=== PATIENT | female | born 1950 | race Caucasian/White ===

== ENCOUNTER 2017-09-12 13:31 | Inpatient (IN) | payer MEDICARE, OTHER ==
[2017-09-12] MEDS: morphine 2 MG INJ IV (14:53)
[2017-09-12] MEDS: SOD CHLORIDE 0.9% 1,000 ML IV (14:53)
[2017-09-12] MEDS: FAMOTIDINE 20 MG INJ IV (14:54)
[2017-09-12] MEDS: ONDANSETRON 4 MG INJ IV (14:54)
[2017-09-12 15:14] LABS: INR 1.04; PROTIME 13.7 Sec (11.9-14.9); PT RATIO 1.1
[2017-09-12 15:15] LABS: WHITE BLOOD COUNT 4.7 10^3/ul (4.8-10.8)
[2017-09-12 15:15] LABS: ABNORMAL IP MESSAGE 1; HEMATOCRIT 11.3 % (37.0-47.0); MEAN CORPUSCULAR HEMOGLOBIN 29.6 pg (29.0-33.0); MEAN CORPUSCULAR HGB CONC 30.1 g/dl (32.0-37.0); MEAN CORPUSCULAR VOLUME 98.3 fl (82.0-101.0); MEAN PLATELET VOLUME 9.9 fl (7.4-10.4); NUCLEATED RED BLOOD CELLS% 0.9 /100WBC (0.0-0.0); PARTIAL THROMBOPLASTIN TIME 27.7 Sec (25.0-35.0); PLATELET COUNT 209 10^3/UL (140-415); RED BLOOD COUNT 1.15 10^6/ul (4.20-5.40)
[2017-09-12 15:18] LABS: ADD MAN DIFF? YES; ALANINE AMINOTRANSFERASE 33 IU/L (13-69); ALBUMIN 2.7 g/dl (3.3-4.9); ALBUMIN/GLOBULIN RATIO 1.03; ALKALINE PHOSPHATASE 29 IU/L (42-121); ANION GAP 11 (8-16); ASPARTATE AMINO TRANSFERASE 16 IU/L (15-46); BILIRUBIN,INDIRECT 0.7 mg/dl (0-1.1); BILIRUBIN,TOTAL 0.7 mg/dl (0.2-1.3); BLOOD UREA NITROGEN 30 mg/dl (7-20); CALCIUM 8.4 mg/dl (8.4-10.2); CARBON DIOXIDE 28 mmol/L (21-31); CHLORIDE 93 mmol/L (97-110); CREATININE 1.26 mg/dl (0.44-1.00); GLUCOSE 116 mg/dl (70-220); HEMOGLOBIN 3.4 g/dl (12.0-16.0); POSITIVE DIFF @See below; POTASSIUM 3.4 mmol/L (3.5-5.1); SODIUM 129 mmol/L (135-144); TOTAL PROTEIN 5.3 g/dl (6.1-8.1)
[2017-09-12 15:36] LABS: TROPONIN-I < 0.012 ng/ml (0.00-0.12)
[2017-09-12 15:46] LABS: ANISOCYTOSIS 2+ (0-0); EOSINOPHILS % (M) 4 % (0-7); HYPOCHROMASIA 1+ (0-0); LYMPHOCYTES #M 1.1 10^3/ul (0.8-2.9); LYMPHOCYTES % (M) 24 % (15-51); MICROCYTOSIS 1+ (0-0); MONOCYTE #M 0.2 10^3/ul (0.3-0.9); MONOCYTES % (M) 5 % (0-11); PLATELET ESTIMATE NORMAL; POLYCHROMASIA 3+ (0-0); SEGMENTED NEUTROPHILS (M) % 67 % (39-77); SMUDGE%M 4 % (0-0)
[2017-09-12] MEDS ORDERED: ONDANSETRON 4 MG INJ IV (16:00)
[2017-09-12] MEDS ORDERED: ACETAMINOPHEN 325 MG TAB PO (16:00)
[2017-09-12 16:58] LABS: ADD UMIC YES; UR ASCORBIC ACID NEGATIVE (NEGATIVE); UR BILIRUBIN (Dip) NEGATIVE (NEGATIVE); UR BLOOD (Dip) 1+ mg/dL (NEGATIVE); UR CLARITY CLEAR (CLEAR); UR COLOR YELLOW (YELLOW); UR GLUCOSE (Dip) NEGATIVE (NEGATIVE); UR KETONES (Dip) NEGATIVE (NEGATIVE); UR LEUKOCYTE ESTERASE (Dip) NEGATIVE Leu/ul (NEGATIVE); UR NITRITE (Dip) NEGATIVE (NEGATIVE); UR RBC 0 /HPF (0-5); UR SPECIFIC GRAVITY (Dip) 1.012 (1.003-1.030); UR TOTAL PROTEIN (Dip) NEGATIVE (NEGATIVE); UR UROBILINOGEN (Dip) NEGATIVE (NEGATIVE); UR WBC 1 /HPF (0-5)
[2017-09-12] MEDS ORDERED: NACL 0.9% 3 ML SYG IV (17:00)
[2017-09-12] MEDS: PANTOPRAZOLE IV 80 MG in SOD CHLORIDE 0.9% 100 ML IVPB (18:41)
[2017-09-12] MEDS: D5W-0.45 NACL + KCL 20 MEQ 1,000 ML IV (18:41)
[2017-09-12] MEDS: PANTOPRAZOLE IV 80 MG in SOD CHLORIDE 0.9% 100 ML IV (19:00)
[2017-09-12] MEDS: D5-NS + KCL 20 MEQ 1,000 ML IV (21:00)
[2017-09-12] MEDS: LACTULOSE 30ML CUP PO ×2 (21:00→22:53)
[2017-09-13] MEDS: PANTOPRAZOLE IV 80 MG in SOD CHLORIDE 0.9% 100 ML IV ×3 (03:00→13:09)
[2017-09-13] MEDS: LACTULOSE 30ML CUP PO ×2 (03:37)
[2017-09-13 05:36] LABS: ADD MAN DIFF? NO
[2017-09-13 06:09] LABS: ABNORMAL IP MESSAGE 1; BASOPHILS % 0.8 % (0.0-2.0); EOSINOPHILS % 0.3 % (0.0-7.0); HEMATOCRIT 18.4 % (37.0-47.0); LYMPHOCYTES # 0.9 10^3/ul (0.8-2.9); LYMPHOCYTES % 23.3 % (15.0-51.0); MEAN CORPUSCULAR HEMOGLOBIN 29.2 pg (29.0-33.0); MEAN CORPUSCULAR HGB CONC 32.1 g/dl (32.0-37.0); MEAN CORPUSCULAR VOLUME 91.1 fl (82.0-101.0); MEAN PLATELET VOLUME 9.8 fl (7.4-10.4); MONOCYTE # 0.4 10^3/ul (0.3-0.9); MONOCYTES % 10.6 % (0.0-11.0); NEUTROPHIL # 2.5 10^3/ul (1.6-7.5); NUCLEATED RED BLOOD CELLS # 0.1 10^3/ul (0.0-0.0); NUCLEATED RED BLOOD CELLS% 1.5 /100WBC (0.0-0.0); PLATELET COUNT 192 10^3/UL (140-415); RED BLOOD COUNT 2.02 10^6/ul (4.20-5.40)
[2017-09-13 06:26] LABS: ALBUMIN/GLOBULIN RATIO 0.92; ANION GAP 10 (8-16); POSITIVE DIFF @See below
[2017-09-13 06:29] LABS: HEMOGLOBIN 5.9 g/dl (12.0-16.0)
[2017-09-13 06:38] LABS: ALANINE AMINOTRANSFERASE 29 IU/L (13-69); ALBUMIN 2.3 g/dl (3.3-4.9); ALKALINE PHOSPHATASE 25 IU/L (42-121); ASPARTATE AMINO TRANSFERASE 15 IU/L (15-46); BLOOD UREA NITROGEN 25 mg/dl (7-20); CARBON DIOXIDE 27 mmol/L (21-31); CHLORIDE 103 mmol/L (97-110); CREATININE 1.12 mg/dl (0.44-1.00); GLUCOSE 127 mg/dl (70-220); MAGNESIUM 1.9 mg/dl (1.7-2.5); PHOSPHORUS 4.2 mg/dl (2.5-4.9); POTASSIUM 3.5 mmol/L (3.5-5.1); SODIUM 136 mmol/L (135-144); TOTAL PROTEIN 4.8 g/dl (6.1-8.1)
[2017-09-13] MEDS ORDERED: LIDOCAINE 2% (SDV) 5 ML INJ (07:00)
[2017-09-13] MEDS ORDERED: PROPOFOL 200 MG INJ (07:00)
[2017-09-13] MEDS: D5-NS + KCL 20 MEQ 1,000 ML IV ×3 (08:00→18:30)
[2017-09-13 09:19] LABS: ANISOCYTOSIS 1+ (0-0); BASOPHILS % (M) 1 % (0-2); EOSINOPHILS % (M) 9 % (0-7); ERYTHROBLAST% (NRBC) (M) 2 % (0-0); LYMPHOCYTES % (M) 25 % (15-51); METAMYELOCYTES %M 2 % (0-0); MICROCYTOSIS 1+ (0-0); MONOCYTE #M 0.2 10^3/ul (0.3-0.9); MONOCYTES % (M) 5 % (0-11); MYELOCYTES % (M) 1 % (0-0); PLATELET ESTIMATE NORMAL; POLYCHROMASIA 3+ (0-0); SEGMENTED NEUTROPHILS (M) % 57 % (39-77); SMUDGE%M 2 % (0-0)
[2017-09-13] MEDS: morphine 2 MG INJ IV ×2 (10:08→15:36)
[2017-09-13 11:41] LABS: HEMATOCRIT 18.9 % (37.0-47.0)
[2017-09-13 11:51] LABS: HEMOGLOBIN 6.1 g/dl (12.0-16.0)
[2017-09-13] MEDS: FUROSEMIDE 20 MG INJ IV (12:59)
[2017-09-13 15:04] LABS: IMMEDIATE SPIN CROSSMATCH 1 3
[2017-09-13 15:19] LABS: PATH REVIEW CH
[2017-09-13] MEDS ORDERED: PROPOFOL 60 ML (19:01)
[2017-09-13 19:11] LABS: HEMATOCRIT 22.8 % (37.0-47.0); HEMOGLOBIN 7.2 g/dl (12.0-16.0)
[2017-09-14] MEDS: morphine 2 MG INJ IV ×2 (00:19→19:47)
[2017-09-14 05:44] LABS: ADD MAN DIFF? NO
[2017-09-14 06:06] LABS: WHITE BLOOD COUNT 3.3 10^3/ul (4.8-10.8)
[2017-09-14 06:06] LABS: BASOPHILS % 0.3 % (0.0-2.0); EOSINOPHILS # 0.1 10^3/ul (0.0-0.5); EOSINOPHILS % 1.5 % (0.0-7.0); HEMATOCRIT 21.5 % (37.0-47.0); HEMOGLOBIN 7.1 g/dl (12.0-16.0); LYMPHOCYTES # 0.8 10^3/ul (0.8-2.9); LYMPHOCYTES % 24.3 % (15.0-51.0); MEAN CORPUSCULAR HEMOGLOBIN 29.1 pg (29.0-33.0); MEAN CORPUSCULAR VOLUME 88.1 fl (82.0-101.0); MEAN PLATELET VOLUME 9.6 fl (7.4-10.4); MONOCYTE # 0.3 10^3/ul (0.3-0.9); NEUTROPHIL # 2.1 10^3/ul (1.6-7.5); NEUTROPHILS % 62.7 % (39.0-77.0); PLATELET COUNT 171 10^3/UL (140-415); RED BLOOD COUNT 2.44 10^6/ul (4.20-5.40); RED CELL DISTRIBUTION WIDTH 17.2 % (11.5-14.5)
[2017-09-14 06:39] LABS: ANION GAP 10 (8-16); BLOOD UREA NITROGEN 17 mg/dl (7-20); CALCIUM 7.9 mg/dl (8.4-10.2); CARBON DIOXIDE 26 mmol/L (21-31); CHLORIDE 104 mmol/L (97-110); CREATININE 0.99 mg/dl (0.44-1.00); GLUCOSE 114 mg/dl (70-220); MAGNESIUM 1.6 mg/dl (1.7-2.5); PHOSPHORUS 3.9 mg/dl (2.5-4.9); POTASSIUM 3.3 mmol/L (3.5-5.1); SODIUM 137 mmol/L (135-144)
[2017-09-14] MEDS: MAGNESIUM SULFATE 2 GM/50 ML 50 ML IVPB (08:58)
[2017-09-14] MEDS: BALSAM PERU/CASTOR OIL 60 GM TUBE TOP (09:01)
[2017-09-14] MEDS: POTASSIUM CHLORIDE 30 MEQ in SOD CHLORIDE 0.9% 150 ML IVPB (09:52)
[2017-09-14] MEDS: PANTOPRAZOLE IV 80 MG in SOD CHLORIDE 0.9% 100 ML IV ×2 (13:30→19:00)
[2017-09-14 15:33] LABS: IMMEDIATE SPIN CROSSMATCH 1
[2017-09-14 19:08] LABS: HEMATOCRIT 27.3 % (37.0-47.0)
[2017-09-14] MEDS: D5-NS + KCL 20 MEQ 1,000 ML IV ×2 (22:30)
[2017-09-15 00:55] LABS: HEMATOCRIT 27.4 % (37.0-47.0); HEMOGLOBIN 8.8 g/dl (12.0-16.0)
[2017-09-15] MEDS: PANTOPRAZOLE IV 80 MG in SOD CHLORIDE 0.9% 100 ML IV ×2 (04:33→17:17)
[2017-09-15 06:57] LABS: ADD MAN DIFF? NO
[2017-09-15 07:06] LABS: BASOPHILS % 0.4 % (0.0-2.0); EOSINOPHILS % 0.4 % (0.0-7.0); LYMPHOCYTES # 0.6 10^3/ul (0.8-2.9); LYMPHOCYTES % 21.2 % (15.0-51.0); MEAN CORPUSCULAR HEMOGLOBIN 29.2 pg (29.0-33.0); MEAN CORPUSCULAR VOLUME 91.2 fl (82.0-101.0); MEAN PLATELET VOLUME 9.1 fl (7.4-10.4); MONOCYTE # 0.4 10^3/ul (0.3-0.9); MONOCYTES % 12.4 % (0.0-11.0); NEUTROPHIL # 1.8 10^3/ul (1.6-7.5); NEUTROPHILS % 64.5 % (39.0-77.0); PLATELET COUNT 170 10^3/UL (140-415); RED BLOOD COUNT 2.74 10^6/ul (4.20-5.40); RED CELL DISTRIBUTION WIDTH 17.2 % (11.5-14.5)
[2017-09-15 07:06] LABS: WHITE BLOOD COUNT 2.8 10^3/ul (4.8-10.8)
[2017-09-15 07:22] LABS: ANION GAP 8 (8-16); BLOOD UREA NITROGEN 12 mg/dl (7-20); CALCIUM 7.7 mg/dl (8.4-10.2); CARBON DIOXIDE 25 mmol/L (21-31); CHLORIDE 108 mmol/L (97-110); CREATININE 0.84 mg/dl (0.44-1.00); GLUCOSE 109 mg/dl (70-220); MAGNESIUM 1.9 mg/dl (1.7-2.5); PHOSPHORUS 3.7 mg/dl (2.5-4.9); POTASSIUM 3.8 mmol/L (3.5-5.1); SODIUM 137 mmol/L (135-144)
[2017-09-15] MEDS: D5-NS + KCL 20 MEQ 1,000 ML IV ×2 (08:26→16:49)
[2017-09-15] MEDS: BALSAM PERU/CASTOR OIL 60 GM TUBE TOP (09:24)
[2017-09-15 12:47] LABS: HEMATOCRIT 26.7 % (37.0-47.0); HEMOGLOBIN 8.7 g/dl (12.0-16.0)
[2017-09-15 18:41] LABS: HEMATOCRIT 25.4 % (37.0-47.0); HEMOGLOBIN 8.3 g/dl (12.0-16.0)
[2017-09-15] MEDS: morphine 2 MG INJ IV (21:14)
[2017-09-16] MEDS: PANTOPRAZOLE IV 80 MG in SOD CHLORIDE 0.9% 100 ML IV ×4 (01:00→20:57)
[2017-09-16] MEDS: morphine 2 MG INJ IV ×4 (06:41→20:56)
[2017-09-16 08:45] LABS: ANION GAP 8 (8-16); BLOOD UREA NITROGEN 13 mg/dl (7-20); CALCIUM 8.2 mg/dl (8.4-10.2); CARBON DIOXIDE 24 mmol/L (21-31); CHLORIDE 110 mmol/L (97-110); CREATININE 0.84 mg/dl (0.44-1.00); GLUCOSE 103 mg/dl (70-220); MAGNESIUM 1.8 mg/dl (1.7-2.5); PHOSPHORUS 4.2 mg/dl (2.5-4.9); SODIUM 138 mmol/L (135-144)
[2017-09-16] MEDS: BALSAM PERU/CASTOR OIL 60 GM TUBE TOP ×2 (09:00→16:35)
[2017-09-16] MEDS: ONDANSETRON 4 MG INJ IV (20:56)
[2017-09-17] MEDS: D5-NS + KCL 20 MEQ 1,000 ML IV (01:30)
[2017-09-17 07:54] LABS: ADD MAN DIFF? NO
[2017-09-17 08:02] LABS: BASOPHILS % 0.5 % (0.0-2.0); EOSINOPHILS # 0.1 10^3/ul (0.0-0.5); EOSINOPHILS % 2.8 % (0.0-7.0); HEMATOCRIT 27.3 % (37.0-47.0); HEMOGLOBIN 8.7 g/dl (12.0-16.0); LYMPHOCYTES # 1.2 10^3/ul (0.8-2.9); LYMPHOCYTES % 30.4 % (15.0-51.0); MEAN CORPUSCULAR HEMOGLOBIN 29.2 pg (29.0-33.0); MEAN CORPUSCULAR HGB CONC 31.9 g/dl (32.0-37.0); MEAN CORPUSCULAR VOLUME 91.6 fl (82.0-101.0); MEAN PLATELET VOLUME 9.5 fl (7.4-10.4); MONOCYTE # 0.5 10^3/ul (0.3-0.9); MONOCYTES % 12.4 % (0.0-11.0); NEUTROPHIL # 2.1 10^3/ul (1.6-7.5); NEUTROPHILS % 53.1 % (39.0-77.0); PLATELET COUNT 182 10^3/UL (140-415); RED BLOOD COUNT 2.98 10^6/ul (4.20-5.40); RED CELL DISTRIBUTION WIDTH 16.3 % (11.5-14.5)
[2017-09-17 08:02] LABS: WHITE BLOOD COUNT 3.9 10^3/ul (4.8-10.8)
[2017-09-17 08:30] LABS: ANION GAP 10 (8-16); BLOOD UREA NITROGEN 15 mg/dl (7-20); CALCIUM 8.2 mg/dl (8.4-10.2); CARBON DIOXIDE 22 mmol/L (21-31); CHLORIDE 109 mmol/L (97-110); CREATININE 0.82 mg/dl (0.44-1.00); GLUCOSE 95 mg/dl (70-220); SODIUM 137 mmol/L (135-144)
[2017-09-17] MEDS: PANTOPRAZOLE IV 80 MG in SOD CHLORIDE 0.9% 100 ML IV ×2 (08:52→14:28)
[2017-09-17] MEDS: BALSAM PERU/CASTOR OIL 60 GM TUBE TOP (09:10)
[2017-09-17] MEDS: morphine 2 MG INJ IV ×4 (09:11→21:46)
[2017-09-17] MEDS: PANTOPRAZOLE (EC) 40 MG TAB PO (17:41)
[2017-09-18] MEDS: ONDANSETRON 4 MG INJ IV ×2 (00:40→20:52)
[2017-09-18] MEDS: POLYETHYLENE GLYCOL 17 GM PACKET PO ×2 (00:41→14:29)
[2017-09-18] MEDS: D5-NS + KCL 20 MEQ 1,000 ML IV (01:30)
[2017-09-18] MEDS: morphine 2 MG INJ IV ×5 (03:05→19:30)
[2017-09-18 05:34] LABS: ADD MAN DIFF? NO
[2017-09-18 05:43] LABS: WHITE BLOOD COUNT 3.6 10^3/ul (4.8-10.8)
[2017-09-18 05:43] LABS: BASOPHILS % 0.6 % (0.0-2.0); HEMATOCRIT 28.5 % (37.0-47.0); HEMOGLOBIN 9.2 g/dl (12.0-16.0); LYMPHOCYTES # 0.9 10^3/ul (0.8-2.9); LYMPHOCYTES % 26.2 % (15.0-51.0); MEAN CORPUSCULAR HEMOGLOBIN 29.3 pg (29.0-33.0); MEAN CORPUSCULAR HGB CONC 32.3 g/dl (32.0-37.0); MEAN CORPUSCULAR VOLUME 90.8 fl (82.0-101.0); MEAN PLATELET VOLUME 9.6 fl (7.4-10.4); MONOCYTE # 0.5 10^3/ul (0.3-0.9); MONOCYTES % 12.7 % (0.0-11.0); NEUTROPHIL # 2.1 10^3/ul (1.6-7.5); NEUTROPHILS % 59.9 % (39.0-77.0); PLATELET COUNT 203 10^3/UL (140-415); RED BLOOD COUNT 3.14 10^6/ul (4.20-5.40); RED CELL DISTRIBUTION WIDTH 15.9 % (11.5-14.5)
[2017-09-18] MEDS: PANTOPRAZOLE (EC) 40 MG TAB PO ×2 (05:49→18:22)
[2017-09-18 06:39] LABS: ANION GAP 12 (8-16); BLOOD UREA NITROGEN 13 mg/dl (7-20); CALCIUM 8.3 mg/dl (8.4-10.2); CARBON DIOXIDE 20 mmol/L (21-31); CHLORIDE 108 mmol/L (97-110); CREATININE 0.82 mg/dl (0.44-1.00); GLUCOSE 111 mg/dl (70-220); POTASSIUM 3.8 mmol/L (3.5-5.1); SODIUM 136 mmol/L (135-144)
[2017-09-18] MEDS: BALSAM PERU/CASTOR OIL 60 GM TUBE TOP (10:48)
[2017-09-18 11:03] LABS: ADD UMIC YES; UR ASCORBIC ACID NEGATIVE (NEGATIVE); UR BACTERIA MANY /HPF (NONE SEEN); UR BILIRUBIN (Dip) NEGATIVE (NEGATIVE); UR BLOOD (Dip) 1+ mg/dL (NEGATIVE); UR CLARITY CLEAR (CLEAR); UR COLOR YELLOW (YELLOW); UR GLUCOSE (Dip) NEGATIVE (NEGATIVE); UR KETONES (Dip) NEGATIVE (NEGATIVE); UR LEUKOCYTE ESTERASE (Dip) NEGATIVE Leu/ul (NEGATIVE); UR MUCUS FEW /HPF (NONE SEEN); UR NITRITE (Dip) POSITIVE (NEGATIVE); UR RBC 4 /HPF (0-5); UR SPECIFIC GRAVITY (Dip) 1.018 (1.003-1.030); UR TOTAL PROTEIN (Dip) 1+ mg/dl (NEGATIVE); UR UROBILINOGEN (Dip) NEGATIVE (NEGATIVE); UR WBC 6 /HPF (0-5)
[2017-09-19] MEDS: morphine 2 MG INJ IV ×5 (00:17→20:27)
[2017-09-19] MEDS ORDERED: VITAMIN A & D 5 GM OINT PACKET TOP (00:22)
[2017-09-19] MEDS: PANTOPRAZOLE (EC) 40 MG TAB PO ×2 (05:29→18:26)
[2017-09-19] MEDS: BALSAM PERU/CASTOR OIL 60 GM TUBE TOP (11:00)
[2017-09-19] MEDS ORDERED: ALBUTEROL 0.083% (NEB) 2.5 MG/3 ML AMP HHN (12:00)
[2017-09-19] MEDS: ONDANSETRON 4 MG INJ IV (13:45)
[2017-09-19] MEDS: CEFTRIAXONE 1 GM/50 ML (PMX) 50 ML IVPB (18:26)
[2017-09-20] MEDS: morphine 2 MG INJ IV ×5 (00:59→20:56)
[2017-09-20] MEDS: PANTOPRAZOLE (EC) 40 MG TAB PO ×2 (05:10→18:14)
[2017-09-20 06:59] LABS: ANION GAP 11 (8-16); BLOOD UREA NITROGEN 17 mg/dl (7-20); CALCIUM 8.2 mg/dl (8.4-10.2); CARBON DIOXIDE 22 mmol/L (21-31); CHLORIDE 106 mmol/L (97-110); CREATININE 0.87 mg/dl (0.44-1.00); GLUCOSE 121 mg/dl (70-220); MAGNESIUM 1.4 mg/dl (1.7-2.5); PHOSPHORUS 4.2 mg/dl (2.5-4.9); POTASSIUM 3.8 mmol/L (3.5-5.1); SODIUM 135 mmol/L (135-144)
[2017-09-20] MEDS: BALSAM PERU/CASTOR OIL 60 GM TUBE TOP (09:49)
[2017-09-20] MEDS ORDERED: MEROPENEM 1 GM/50ML(PMX) 50 ML IVPB (10:00)
[2017-09-20] MEDS: MAGNESIUM SULFATE 2 GM/50 ML 50 ML IVPB (10:51)
[2017-09-20] MEDS: MEROPENEM 1 GM/50ML(PMX) 50 ML IVPB ×3 (10:51→21:55)
[2017-09-20 11:13] LABS: ADD MAN DIFF? NO
[2017-09-20 11:14] LABS: WHITE BLOOD COUNT 3.6 10^3/ul (4.8-10.8)
[2017-09-20 11:14] LABS: BASOPHILS % 0.6 % (0.0-2.0); EOSINOPHILS # 0.1 10^3/ul (0.0-0.5); EOSINOPHILS % 1.7 % (0.0-7.0); HEMATOCRIT 28.2 % (37.0-47.0); HEMOGLOBIN 8.9 g/dl (12.0-16.0); LYMPHOCYTES # 0.9 10^3/ul (0.8-2.9); MEAN CORPUSCULAR HEMOGLOBIN 28.3 pg (29.0-33.0); MEAN CORPUSCULAR HGB CONC 31.6 g/dl (32.0-37.0); MEAN CORPUSCULAR VOLUME 89.8 fl (82.0-101.0); MONOCYTE # 0.5 10^3/ul (0.3-0.9); MONOCYTES % 14.4 % (0.0-11.0); NEUTROPHIL # 2.1 10^3/ul (1.6-7.5); NEUTROPHILS % 58.7 % (39.0-77.0); PLATELET COUNT 228 10^3/UL (140-415); RED BLOOD COUNT 3.14 10^6/ul (4.20-5.40); RED CELL DISTRIBUTION WIDTH 15.6 % (11.5-14.5)
[2017-09-20] MEDS ORDERED: BARIUM SULF 2% 450 ML BTL (BERRY SMOOTHIE) PO (11:30)
[2017-09-20] MEDS ORDERED: VITAMIN A & D 5 GM OINT PACKET TOP (11:44)
[2017-09-20 11:50] LABS: ALANINE AMINOTRANSFERASE 23 IU/L (13-69); ALBUMIN 2.4 g/dl (3.3-4.9); ALKALINE PHOSPHATASE 39 IU/L (42-121); ASPARTATE AMINO TRANSFERASE 18 IU/L (15-46); BILIRUBIN,INDIRECT 0.4 mg/dl (0-1.1); BILIRUBIN,TOTAL 0.4 mg/dl (0.2-1.3)
[2017-09-20] MEDS: KETOROLAC 30 MG INJ IV (12:30)
[2017-09-21] MEDS: morphine 2 MG INJ IV ×6 (00:58→23:34)
[2017-09-21] MEDS: MEROPENEM 1 GM/50ML(PMX) 50 ML IVPB ×3 (05:41→20:53)
[2017-09-21] MEDS: PANTOPRAZOLE (EC) 40 MG TAB PO ×2 (05:41→17:42)
[2017-09-21] MEDS: BALSAM PERU/CASTOR OIL 60 GM TUBE TOP (09:33)
[2017-09-21] MEDS: KETOROLAC 30 MG INJ IV ×2 (12:52→18:46)
[2017-09-21] MEDS ORDERED: BISACODYL 10 MG SUPP PR (17:00)
[2017-09-21] MEDS: SENNA/DOCUSATE NA (8.6MG/50MG) TAB PO ×2 (20:53→21:00)
[2017-09-22] MEDS: KETOROLAC 30 MG INJ IV ×4 (00:58→23:15)
[2017-09-22] MEDS: MEROPENEM 1 GM/50ML(PMX) 50 ML IVPB ×3 (06:04→22:51)
[2017-09-22] MEDS: PANTOPRAZOLE (EC) 40 MG TAB PO ×2 (06:04→17:14)
[2017-09-22] MEDS: BALSAM PERU/CASTOR OIL 60 GM TUBE TOP (09:29)
[2017-09-22] MEDS: SENNA/DOCUSATE NA (8.6MG/50MG) TAB PO ×2 (09:29→21:00)
[2017-09-22] MEDS: morphine 2 MG INJ IV ×3 (09:58→22:05)
[2017-09-22] MEDS ORDERED: ACETAMINOPHEN 325 MG TAB PO (11:30)
[2017-09-22 11:58] LABS: ADD MAN DIFF? NO
[2017-09-22 12:14] LABS: ABNORMAL IP MESSAGE 1; BASOPHILS % 0.4 % (0.0-2.0); HEMOGLOBIN 8.3 g/dl (12.0-16.0); LYMPHOCYTES # 0.4 10^3/ul (0.8-2.9); LYMPHOCYTES % 15.9 % (15.0-51.0); MEAN CORPUSCULAR HEMOGLOBIN 28.3 pg (29.0-33.0); MEAN CORPUSCULAR HGB CONC 31.9 g/dl (32.0-37.0); MEAN CORPUSCULAR VOLUME 88.7 fl (82.0-101.0); MEAN PLATELET VOLUME 9.3 fl (7.4-10.4); MONOCYTE # 0.3 10^3/ul (0.3-0.9); MONOCYTES % 10.3 % (0.0-11.0); NEUTROPHILS % 72.7 % (39.0-77.0); PLATELET COUNT 180 10^3/UL (140-415); RED BLOOD COUNT 2.93 10^6/ul (4.20-5.40); RED CELL DISTRIBUTION WIDTH 15.2 % (11.5-14.5)
[2017-09-22 12:14] LABS: WHITE BLOOD COUNT 2.7 10^3/ul (4.8-10.8)
[2017-09-22 12:15] LABS: POSITIVE DIFF @See below
[2017-09-22 12:31] LABS: ALBUMIN 2.3 g/dl (3.3-4.9); ANION GAP 11 (8-16); BLOOD UREA NITROGEN 15 mg/dl (7-20); CALCIUM 8.3 mg/dl (8.4-10.2); CARBON DIOXIDE 25 mmol/L (21-31); CHLORIDE 107 mmol/L (97-110); GLUCOSE 103 mg/dl (70-220); MAGNESIUM 1.6 mg/dl (1.7-2.5); PHOSPHORUS 3.4 mg/dl (2.5-4.9); POTASSIUM 3.6 mmol/L (3.5-5.1); SODIUM 139 mmol/L (135-144)
[2017-09-23] MEDS: morphine 2 MG INJ IV ×4 (04:33→22:56)
[2017-09-23] MEDS: KETOROLAC 30 MG INJ IV ×2 (05:36→11:54)
[2017-09-23] MEDS: MEROPENEM 1 GM/50ML(PMX) 50 ML IVPB ×3 (05:38→21:35)
[2017-09-23] MEDS: PANTOPRAZOLE (EC) 40 MG TAB PO ×2 (05:39→17:38)
[2017-09-23 06:19] LABS: ADD MAN DIFF? NO
[2017-09-23 06:37] LABS: BASOPHILS % 0.8 % (0.0-2.0); HEMATOCRIT 26.7 % (37.0-47.0); HEMOGLOBIN 8.3 g/dl (12.0-16.0); LYMPHOCYTES # 0.7 10^3/ul (0.8-2.9); LYMPHOCYTES % 28.5 % (15.0-51.0); MEAN CORPUSCULAR HEMOGLOBIN 28.2 pg (29.0-33.0); MEAN CORPUSCULAR HGB CONC 31.1 g/dl (32.0-37.0); MEAN CORPUSCULAR VOLUME 90.8 fl (82.0-101.0); MEAN PLATELET VOLUME 9.7 fl (7.4-10.4); MONOCYTE # 0.3 10^3/ul (0.3-0.9); MONOCYTES % 11.7 % (0.0-11.0); NEUTROPHIL # 1.5 10^3/ul (1.6-7.5); NEUTROPHILS % 57.8 % (39.0-77.0); PLATELET COUNT 169 10^3/UL (140-415); RED BLOOD COUNT 2.94 10^6/ul (4.20-5.40); RED CELL DISTRIBUTION WIDTH 15.2 % (11.5-14.5)
[2017-09-23 06:37] LABS: WHITE BLOOD COUNT 2.6 10^3/ul (4.8-10.8)
[2017-09-23 07:19] LABS: ALBUMIN 2.3 g/dl (3.3-4.9); ANION GAP 11 (8-16); BLOOD UREA NITROGEN 12 mg/dl (7-20); CALCIUM 8.3 mg/dl (8.4-10.2); CARBON DIOXIDE 24 mmol/L (21-31); CHLORIDE 110 mmol/L (97-110); CREATININE 0.87 mg/dl (0.44-1.00); GLUCOSE 94 mg/dl (70-220); MAGNESIUM 1.7 mg/dl (1.7-2.5); PHOSPHORUS 3.6 mg/dl (2.5-4.9); POTASSIUM 3.2 mmol/L (3.5-5.1); SODIUM 142 mmol/L (135-144)
[2017-09-23] MEDS: BALSAM PERU/CASTOR OIL 60 GM TUBE TOP (08:37)
[2017-09-23] MEDS: SENNA/DOCUSATE NA (8.6MG/50MG) TAB PO ×2 (08:37→21:35)
[2017-09-23] MEDS: POTASSIUM CHLORIDE (SR) 20 MEQ TAB PO (10:04)
[2017-09-23] MEDS: MAGNESIUM SULFATE 2 GM/50 ML 50 ML IVPB (10:37)
[2017-09-23] MEDS: HYDROCODONE/APAP (5/325) TAB PO ×2 (17:38→21:35)
[2017-09-24] MEDS: PANTOPRAZOLE (EC) 40 MG TAB PO ×2 (05:32→17:42)
[2017-09-24] MEDS: MEROPENEM 1 GM/50ML(PMX) 50 ML IVPB ×3 (05:32→20:03)
[2017-09-24] MEDS: HYDROCODONE/APAP (5/325) TAB PO ×5 (05:32→23:39)
[2017-09-24] MEDS: morphine 2 MG INJ IV ×3 (06:38→20:02)
[2017-09-24 07:03] LABS: ADD MAN DIFF? NO
[2017-09-24 07:13] LABS: WHITE BLOOD COUNT 2.7 10^3/ul (4.8-10.8)
[2017-09-24 07:13] LABS: BASOPHILS % 0.7 % (0.0-2.0); HEMATOCRIT 28.6 % (37.0-47.0); HEMOGLOBIN 8.6 g/dl (12.0-16.0); LYMPHOCYTES # 0.7 10^3/ul (0.8-2.9); LYMPHOCYTES % 26.6 % (15.0-51.0); MEAN CORPUSCULAR HEMOGLOBIN 27.7 pg (29.0-33.0); MEAN CORPUSCULAR HGB CONC 30.1 g/dl (32.0-37.0); MEAN PLATELET VOLUME 9.4 fl (7.4-10.4); MONOCYTE # 0.3 10^3/ul (0.3-0.9); MONOCYTES % 10.7 % (0.0-11.0); NEUTROPHIL # 1.7 10^3/ul (1.6-7.5); NEUTROPHILS % 60.9 % (39.0-77.0); PLATELET COUNT 187 10^3/UL (140-415); RED BLOOD COUNT 3.11 10^6/ul (4.20-5.40); RED CELL DISTRIBUTION WIDTH 15.6 % (11.5-14.5)
[2017-09-24 08:10] LABS: ALBUMIN 2.4 g/dl (3.3-4.9); ANION GAP 11 (8-16); BLOOD UREA NITROGEN 10 mg/dl (7-20); CALCIUM 8.1 mg/dl (8.4-10.2); CARBON DIOXIDE 24 mmol/L (21-31); CHLORIDE 108 mmol/L (97-110); CREATININE 0.73 mg/dl (0.44-1.00); GLUCOSE 91 mg/dl (70-220); PHOSPHORUS 3.2 mg/dl (2.5-4.9); POTASSIUM 3.4 mmol/L (3.5-5.1); SODIUM 140 mmol/L (135-144)
[2017-09-24] MEDS: SENNA/DOCUSATE NA (8.6MG/50MG) TAB PO ×2 (09:00→19:41)
[2017-09-24] MEDS: BALSAM PERU/CASTOR OIL 60 GM TUBE TOP (09:39)
[2017-09-24] MEDS: POTASSIUM CHLORIDE (SR) 20 MEQ TAB PO (09:40)
[2017-09-25] MEDS: morphine 2 MG INJ IV ×2 (01:52→08:41)
[2017-09-25] MEDS: HYDROCODONE/APAP (5/325) TAB PO ×4 (03:42→19:42)
[2017-09-25] MEDS: MEROPENEM 1 GM/50ML(PMX) 50 ML IVPB ×3 (05:04→19:42)
[2017-09-25] MEDS: PANTOPRAZOLE (EC) 40 MG TAB PO ×2 (05:04→17:25)
[2017-09-25 05:42] LABS: ADD MAN DIFF? NO
[2017-09-25 05:55] LABS: WHITE BLOOD COUNT 3.1 10^3/ul (4.8-10.8)
[2017-09-25 05:55] LABS: BASOPHILS % 0.6 % (0.0-2.0); HEMATOCRIT 26.4 % (37.0-47.0); HEMOGLOBIN 8.1 g/dl (12.0-16.0); LYMPHOCYTES % 30.4 % (15.0-51.0); MEAN CORPUSCULAR HEMOGLOBIN 27.6 pg (29.0-33.0); MEAN CORPUSCULAR HGB CONC 30.7 g/dl (32.0-37.0); MEAN CORPUSCULAR VOLUME 90.1 fl (82.0-101.0); MEAN PLATELET VOLUME 9.6 fl (7.4-10.4); MONOCYTE # 0.3 10^3/ul (0.3-0.9); MONOCYTES % 9.9 % (0.0-11.0); NEUTROPHIL # 1.8 10^3/ul (1.6-7.5); NEUTROPHILS % 58.5 % (39.0-77.0); PLATELET COUNT 168 10^3/UL (140-415); RED BLOOD COUNT 2.93 10^6/ul (4.20-5.40); RED CELL DISTRIBUTION WIDTH 15.4 % (11.5-14.5)
[2017-09-25 06:12] LABS: ALBUMIN 2.3 g/dl (3.3-4.9); ANION GAP 9 (8-16); BLOOD UREA NITROGEN 10 mg/dl (7-20); CARBON DIOXIDE 24 mmol/L (21-31); CHLORIDE 110 mmol/L (97-110); CREATININE 0.72 mg/dl (0.44-1.00); GLUCOSE 90 mg/dl (70-220); MAGNESIUM 1.7 mg/dl (1.7-2.5); PHOSPHORUS 3.2 mg/dl (2.5-4.9); POTASSIUM 3.7 mmol/L (3.5-5.1); SODIUM 139 mmol/L (135-144)
[2017-09-25] MEDS: SENNA/DOCUSATE NA (8.6MG/50MG) TAB PO ×2 (08:41→19:42)
[2017-09-25] MEDS: BALSAM PERU/CASTOR OIL 60 GM TUBE TOP (08:41)
[2017-09-25] MEDS: HYDROCORTISONE 25 MG SUPP PR ×2 (11:06→19:43)
[2017-09-26] MEDS: HYDROCODONE/APAP (5/325) TAB PO ×5 (00:39→20:34)
[2017-09-26] MEDS: MEROPENEM 1 GM/50ML(PMX) 50 ML IVPB ×3 (04:49→20:34)
[2017-09-26] MEDS: PANTOPRAZOLE (EC) 40 MG TAB PO ×2 (04:49→17:27)
[2017-09-26] MEDS: POLYETHYLENE GLYCOL 17 GM PACKET PO (04:49)
[2017-09-26 05:15] LABS: ADD MAN DIFF? NO
[2017-09-26 05:18] LABS: WHITE BLOOD COUNT 3.3 10^3/ul (4.8-10.8)
[2017-09-26 05:18] LABS: BASOPHILS % 0.9 % (0.0-2.0); EOSINOPHILS % 0.3 % (0.0-7.0); HEMATOCRIT 25.7 % (37.0-47.0); HEMOGLOBIN 8.1 g/dl (12.0-16.0); LYMPHOCYTES % 30.6 % (15.0-51.0); MEAN CORPUSCULAR HGB CONC 31.5 g/dl (32.0-37.0); MEAN CORPUSCULAR VOLUME 88.9 fl (82.0-101.0); MEAN PLATELET VOLUME 9.2 fl (7.4-10.4); MONOCYTE # 0.3 10^3/ul (0.3-0.9); MONOCYTES % 9.4 % (0.0-11.0); NEUTROPHIL # 1.9 10^3/ul (1.6-7.5); NEUTROPHILS % 57.9 % (39.0-77.0); PLATELET COUNT 164 10^3/UL (140-415); RED BLOOD COUNT 2.89 10^6/ul (4.20-5.40); RED CELL DISTRIBUTION WIDTH 15.2 % (11.5-14.5)
[2017-09-26 06:12] LABS: ALBUMIN 2.3 g/dl (3.3-4.9); ANION GAP 11 (8-16); BLOOD UREA NITROGEN 11 mg/dl (7-20); CALCIUM 8.3 mg/dl (8.4-10.2); CARBON DIOXIDE 25 mmol/L (21-31); CHLORIDE 108 mmol/L (97-110); CREATININE 0.69 mg/dl (0.44-1.00); GLUCOSE 103 mg/dl (70-220); MAGNESIUM 1.7 mg/dl (1.7-2.5); PHOSPHORUS 3.3 mg/dl (2.5-4.9); POTASSIUM 3.7 mmol/L (3.5-5.1); SODIUM 140 mmol/L (135-144)
[2017-09-26] MEDS: SENNA/DOCUSATE NA (8.6MG/50MG) TAB PO ×2 (08:41→19:40)
[2017-09-26] MEDS: BALSAM PERU/CASTOR OIL 60 GM TUBE TOP (08:41)
[2017-09-26] MEDS: HYDROCORTISONE 25 MG SUPP PR ×2 (08:41→20:34)
[2017-09-26] MEDS: LORAZEPAM 0.5 MG TAB PO ×2 (08:41→19:40)
[2017-09-27] MEDS: HYDROCODONE/APAP (5/325) TAB PO ×3 (00:58→16:28)
[2017-09-27] MEDS: MEROPENEM 1 GM/50ML(PMX) 50 ML IVPB ×2 (04:31→13:53)
[2017-09-27] MEDS: PANTOPRAZOLE (EC) 40 MG TAB PO ×2 (04:31→17:48)
[2017-09-27 05:25] LABS: ADD MAN DIFF? NO
[2017-09-27 05:29] LABS: BASOPHILS % 0.7 % (0.0-2.0); HEMATOCRIT 25.2 % (37.0-47.0); HEMOGLOBIN 7.9 g/dl (12.0-16.0); LYMPHOCYTES # 0.9 10^3/ul (0.8-2.9); LYMPHOCYTES % 29.9 % (15.0-51.0); MEAN CORPUSCULAR HGB CONC 31.3 g/dl (32.0-37.0); MEAN CORPUSCULAR VOLUME 89.4 fl (82.0-101.0); MEAN PLATELET VOLUME 9.4 fl (7.4-10.4); MONOCYTE # 0.3 10^3/ul (0.3-0.9); MONOCYTES % 9.4 % (0.0-11.0); NEUTROPHIL # 1.8 10^3/ul (1.6-7.5); NEUTROPHILS % 58.7 % (39.0-77.0); PLATELET COUNT 140 10^3/UL (140-415); RED BLOOD COUNT 2.82 10^6/ul (4.20-5.40); RED CELL DISTRIBUTION WIDTH 15.7 % (11.5-14.5)
[2017-09-27 05:48] LABS: ALBUMIN 2.3 g/dl (3.3-4.9); ANION GAP 11 (8-16); BLOOD UREA NITROGEN 11 mg/dl (7-20); CALCIUM 7.9 mg/dl (8.4-10.2); CARBON DIOXIDE 25 mmol/L (21-31); CHLORIDE 109 mmol/L (97-110); CREATININE 0.76 mg/dl (0.44-1.00); GLUCOSE 99 mg/dl (70-220); MAGNESIUM 1.6 mg/dl (1.7-2.5); PHOSPHORUS 3.3 mg/dl (2.5-4.9); POTASSIUM 3.6 mmol/L (3.5-5.1); SODIUM 141 mmol/L (135-144)
[2017-09-27] MEDS: LORAZEPAM 0.5 MG TAB PO ×3 (05:56→20:10)
[2017-09-27] MEDS: HYDROCORTISONE 25 MG SUPP PR ×2 (09:16→20:40)
[2017-09-27] MEDS: SENNA/DOCUSATE NA (8.6MG/50MG) TAB PO ×2 (09:16→20:40)
[2017-09-27] MEDS: BALSAM PERU/CASTOR OIL 60 GM TUBE TOP (09:17)
[2017-09-27] MEDS: MAGNESIUM OXIDE 400 MG TAB PO (13:53)
[2017-09-28] MEDS: HYDROCODONE/APAP (5/325) TAB PO ×3 (05:43→17:59)
[2017-09-28] MEDS: PANTOPRAZOLE (EC) 40 MG TAB PO ×2 (05:43→17:59)
[2017-09-28] MEDS: LORAZEPAM 0.5 MG TAB PO ×3 (06:01→17:59)
[2017-09-28] MEDS: SENNA/DOCUSATE NA (8.6MG/50MG) TAB PO ×2 (09:00→21:00)
[2017-09-28] MEDS: HYDROCORTISONE 25 MG SUPP PR ×2 (09:40→21:00)
[2017-09-28] MEDS: BALSAM PERU/CASTOR OIL 60 GM TUBE TOP (09:40)
[2017-09-29] MEDS: LORAZEPAM 0.5 MG TAB PO (06:26)
[2017-09-29] MEDS: HYDROCODONE/APAP (5/325) TAB PO (06:26)
[2017-09-29] MEDS: PANTOPRAZOLE (EC) 40 MG TAB PO (06:26)
[2017-09-29] MEDS: HYDROCORTISONE 25 MG SUPP PR (08:50)
[2017-09-29] MEDS: SENNA/DOCUSATE NA (8.6MG/50MG) TAB PO (08:50)
[2017-09-29] MEDS: BALSAM PERU/CASTOR OIL 60 GM TUBE TOP (08:51)
== END 2017-09-29 11:56 | disposition home or self-care (01) | DRG 392 ==
LOC: MS4 09-15 10:21 → MS1 09-17 15:37 → E/R 13:31 → ICU 16:58
PROC: 0DBN8ZX Excision of Sigmoid Colon, Via Natural or Artificial Opening Endoscopic, Diagnostic (ICD-10-PCS; principal; 2017-09-13 17:00)
PROC: 0DB68ZX Excision of Stomach, Via Natural or Artificial Opening Endoscopic, Diagnostic (ICD-10-PCS; 2017-09-13 17:00)
PROC: 30233K1 Transfusion of Nonautologous Frozen Plasma into Peripheral Vein, Percutaneous Approach (ICD-10-PCS; 2017-09-13 17:00)
PROC: 30233N1 Transfusion of Nonautologous Red Blood Cells into Peripheral Vein, Percutaneous Approach (ICD-10-PCS; 2017-09-13 17:00)
DX: K29.70 Gastritis, unspecified, without bleeding (principal); N17.9 Acute kidney failure, unspecified; I95.89 Other hypotension; E87.1 Hypo-osmolality and hyponatremia; D62 Acute posthemorrhagic anemia; K56.7 Ileus, unspecified; N39.0 Urinary tract infection, site not specified; E83.42 Hypomagnesemia; E83.9 Disorder of mineral metabolism, unspecified; E03.9 Hypothyroidism, unspecified; E86.0 Dehydration; E87.6 Hypokalemia; I12.9 Hypertensive chronic kidney disease with stage 1 through stage 4 chronic kidney disease, or unspecified chronic kidney disease; N18.9 Chronic kidney disease, unspecified; R53.81 Other malaise; K64.8 Other hemorrhoids; K31.9 Disease of stomach and duodenum, unspecified; R06.2 Wheezing; B96.20 Unspecified Escherichia coli [E. coli] as the cause of diseases classified elsewhere; Z86.59 Personal history of other mental and behavioral disorders
CPT/HCPCS: 36430; 74000; 78278; 80048; 80053; 80069; 80076; 81001; 83735; 84100; 84484; 85014; 85018; 85025; 85610; 85730; 86850; 86870; 86900; 86901; 86902; 86920; 87086; 88305; 93005; 96374; 96375; 97110; 97116; 97163; 97530; 99291-25; J1940

== ENCOUNTER 2018-04-18 18:31 | Emergency (ER) | payer MEDICARE, OTHER ==
[2018-04-18 19:36] LABS: ADD MAN DIFF? NO
[2018-04-18] MEDS: SOD CHLORIDE 0.9% 1,000 ML IV (19:38)
[2018-04-18 19:41] LABS: BASOPHILS % 0.5 % (0.0-2.0); EOSINOPHILS % 0.5 % (0.0-7.0); HEMATOCRIT 33.6 % (37.0-47.0); HEMOGLOBIN 10.6 g/dl (12.0-16.0); LYMPHOCYTES # 1.3 10^3/ul (0.8-2.9); LYMPHOCYTES % 20.6 % (15.0-51.0); MEAN CORPUSCULAR HEMOGLOBIN 27.9 pg (29.0-33.0); MEAN CORPUSCULAR HGB CONC 31.5 g/dl (32.0-37.0); MEAN CORPUSCULAR VOLUME 88.4 fl (82.0-101.0); MEAN PLATELET VOLUME 9.4 fl (7.4-10.4); MONOCYTE # 0.7 10^3/ul (0.3-0.9); MONOCYTES % 10.8 % (0.0-11.0); NEUTROPHIL # 4.4 10^3/ul (1.6-7.5); NEUTROPHILS % 66.8 % (39.0-77.0); PLATELET COUNT 229 10^3/UL (140-415); RED CELL DISTRIBUTION WIDTH 17.3 % (11.5-14.5)
[2018-04-18 19:41] LABS: WHITE BLOOD COUNT 6.5 10^3/ul (4.8-10.8)
[2018-04-18 19:48] LABS: ADD UMIC YES; UR ASCORBIC ACID NEGATIVE (NEGATIVE); UR BACTERIA MODERATE /HPF (NONE SEEN); UR BILIRUBIN (Dip) NEGATIVE (NEGATIVE); UR BLOOD (Dip) 1+ mg/dL (NEGATIVE); UR CLARITY CLEAR (CLEAR); UR COLOR YELLOW (YELLOW); UR GLUCOSE (Dip) NEGATIVE (NEGATIVE); UR KETONES (Dip) NEGATIVE (NEGATIVE); UR LEUKOCYTE ESTERASE (Dip) 1+ Leu/ul (NEGATIVE); UR NITRITE (Dip) POSITIVE (NEGATIVE); UR RBC 2 /HPF (0-5); UR SPECIFIC GRAVITY (Dip) 1.008 (1.003-1.030); UR TOTAL PROTEIN (Dip) NEGATIVE (NEGATIVE); UR UROBILINOGEN (Dip) NEGATIVE (NEGATIVE); UR WBC 39 /HPF (0-5)
[2018-04-18 19:50] LABS: ALANINE AMINOTRANSFERASE 25 IU/L (13-69); ALBUMIN 3.8 g/dl (3.3-4.9); ALBUMIN/GLOBULIN RATIO 1.02; ALKALINE PHOSPHATASE 85 IU/L (42-121); ANION GAP 17 (8-16); ASPARTATE AMINO TRANSFERASE 31 IU/L (15-46); BILIRUBIN,INDIRECT 0.4 mg/dl (0-1.1); BILIRUBIN,TOTAL 0.4 mg/dl (0.2-1.3); BLOOD UREA NITROGEN 19 mg/dl (7-20); CALCIUM 9.1 mg/dl (8.4-10.2); CARBON DIOXIDE 31 mmol/L (21-31); CHLORIDE 85 mmol/L (97-110); CREATININE 0.96 mg/dl (0.44-1.00); GLUCOSE 130 mg/dl (70-220); POTASSIUM 3.4 mmol/L (3.5-5.1); SODIUM 130 mmol/L (135-144); TOTAL PROTEIN 7.5 g/dl (6.1-8.1)
[2018-04-18 20:02] LABS: AMPHETAMINE/METHAMPHETAMINE Negative (NEGATIVE); BARBITURATES Negative (NEGATIVE); CANNABINOIDS Negative (NEGATIVE); COCAINE Negative (NEGATIVE); OPIATES Positive (NEGATIVE)
[2018-04-18 20:03] LABS: BENZODIAZEPINES Positive (NEGATIVE)
[2018-04-18] MEDS: CEPHALEXIN 500 MG CAP PO (20:39)
== END 2018-04-19 00:40 | disposition left against medical advice (07) ==
LOC: E/R 04-19 00:40
DX: F10.920 Alcohol use, unspecified with intoxication, uncomplicated (principal); N30.00 Acute cystitis without hematuria; I10 Essential (primary) hypertension; R40.4 Transient alteration of awareness; Z87.891 Personal history of nicotine dependence; Z96.652 Presence of left artificial knee joint
CPT/HCPCS: 36415; 70450; 71045; 80053; 80307; 81001; 82962; 84484; 85025; 93005; 99285-25

== ENCOUNTER 2018-04-29 01:04 | Emergency (ER) | payer MEDICARE, OTHER ==
[2018-04-29 03:12] LABS: AMPHETAMINE/METHAMPHETAMINE Negative (NEGATIVE); BARBITURATES Negative (NEGATIVE); CANNABINOIDS Negative (NEGATIVE); COCAINE Negative (NEGATIVE); OPIATES Positive (NEGATIVE)
[2018-04-29 03:13] LABS: BENZODIAZEPINES Positive (NEGATIVE)
[2018-04-29 03:36] LABS: ADD UMIC YES; UR AMORPHOUS CRYSTAL FEW /HPF (NONE SEEN); UR ASCORBIC ACID NEGATIVE (NEGATIVE); UR BACTERIA MODERATE /HPF (NONE SEEN); UR BILIRUBIN (Dip) NEGATIVE (NEGATIVE); UR BLOOD (Dip) NEGATIVE (NEGATIVE); UR CLARITY SLIGHTLY CLOUDY (CLEAR); UR COLOR YELLOW (YELLOW); UR GLUCOSE (Dip) NEGATIVE (NEGATIVE); UR KETONES (Dip) NEGATIVE (NEGATIVE); UR LEUKOCYTE ESTERASE (Dip) TRACE Leu/ul (NEGATIVE); UR NITRITE (Dip) POSITIVE (NEGATIVE); UR RBC 0 /HPF (0-5); UR SPECIFIC GRAVITY (Dip) 1.006 (1.003-1.030); UR TOTAL PROTEIN (Dip) NEGATIVE (NEGATIVE); UR UROBILINOGEN (Dip) NEGATIVE (NEGATIVE); UR WBC 1 /HPF (0-5)
[2018-04-29 06:14] LABS: ADD MAN DIFF? NO
[2018-04-29 06:19] LABS: WHITE BLOOD COUNT 5.2 10^3/ul (4.8-10.8)
[2018-04-29 06:19] LABS: BASOPHILS % 0.8 % (0.0-2.0); EOSINOPHILS # 0.1 10^3/ul (0.0-0.5); HEMATOCRIT 33.4 % (37.0-47.0); LYMPHOCYTES % 37.9 % (15.0-51.0); MEAN CORPUSCULAR HEMOGLOBIN 27.9 pg (29.0-33.0); MEAN CORPUSCULAR HGB CONC 32.9 g/dl (32.0-37.0); MEAN CORPUSCULAR VOLUME 84.8 fl (82.0-101.0); MEAN PLATELET VOLUME 9.4 fl (7.4-10.4); MONOCYTE # 0.5 10^3/ul (0.3-0.9); MONOCYTES % 9.7 % (0.0-11.0); NEUTROPHIL # 2.6 10^3/ul (1.6-7.5); NEUTROPHILS % 50.4 % (39.0-77.0); PLATELET COUNT 270 10^3/UL (140-415); RED BLOOD COUNT 3.94 10^6/ul (4.20-5.40); RED CELL DISTRIBUTION WIDTH 17.2 % (11.5-14.5)
[2018-04-29 06:35] LABS: INR 0.96; PROTIME 12.9 Sec (11.9-14.9)
[2018-04-29] MEDS: SOD CHLORIDE 0.9% 1,000 ML IV ×2 (06:35→10:00)
[2018-04-29 06:44] LABS: ALANINE AMINOTRANSFERASE 32 IU/L (13-69); ALBUMIN 3.8 g/dl (3.3-4.9); ALBUMIN/GLOBULIN RATIO 1.18; ALKALINE PHOSPHATASE 124 IU/L (42-121); ANION GAP 21 (8-16); ASPARTATE AMINO TRANSFERASE 50 IU/L (15-46); BILIRUBIN,INDIRECT 0.8 mg/dl (0-1.1); BILIRUBIN,TOTAL 0.8 mg/dl (0.2-1.3); BLOOD UREA NITROGEN 13 mg/dl (7-20); CALCIUM 8.7 mg/dl (8.4-10.2); CARBON DIOXIDE 27 mmol/L (21-31); CHLORIDE 84 mmol/L (97-110); CREATININE 0.91 mg/dl (0.44-1.00); GLUCOSE 111 mg/dl (70-220); POTASSIUM 4.7 mmol/L (3.5-5.1); SODIUM 127 mmol/L (135-144)
[2018-04-29 06:54] LABS: ACETAMINOPHEN < 10.0 ug/ml (10.0-30.0); SALICYLATE < 1.0 mg/dl (5.0-30.0)
[2018-04-29 06:55] LABS: TROPONIN-I 0.011 ng/ml (0.000-0.120)
[2018-04-29 13:27] LABS: ETHANOL < 10.0 mg/dl
== END 2018-04-29 15:30 | disposition home or self-care (01) ==
LOC: E/R 01:04
DX: F10.129 Alcohol abuse with intoxication, unspecified (principal); F17.210 Nicotine dependence, cigarettes, uncomplicated; R41.82 Altered mental status, unspecified; Z96.652 Presence of left artificial knee joint
CPT/HCPCS: 70450; 71045; 72125; 80053; 80307; 81001; 82962; 84484; 85025; 85610; 93005; 99285-25

== ENCOUNTER 2018-09-29 09:12 | Emergency (ER) | payer MEDICARE, OTHER ==
[2018-09-29] MEDS: DIPHTH/TET/ACEL PERTUSS (ADULT) 0.5 ML VIAL IM* (09:46)
[2018-09-29] MEDS ORDERED: ACETAMINOPHEN 500 MG TAB PO (11:06)
== END 2018-09-29 11:50 | disposition home or self-care (01) ==
LOC: E/R 09:12
DX: S01.81XA Laceration without foreign body of other part of head, initial encounter (principal); S09.90XA Unspecified injury of head, initial encounter; W18.30XA Fall on same level, unspecified, initial encounter; Y92.9 Unspecified place or not applicable; Z23 Encounter for immunization; Z87.891 Personal history of nicotine dependence; Z96.652 Presence of left artificial knee joint
CPT/HCPCS: 12011; 70450; 72125; 90471; 90715; 99284-25

== ENCOUNTER 2018-10-22 14:35 | Emergency (ER) | payer MEDICARE, OTHER ==
[2018-10-22] MEDS: HYDROCODONE/APAP (5/325) TAB PO (16:19)
== END 2018-10-22 18:22 | disposition home or self-care (01) ==
LOC: FTE 18:22
DX: S62.101A Fracture of unspecified carpal bone, right wrist, initial encounter for closed fracture (principal); F17.210 Nicotine dependence, cigarettes, uncomplicated; W18.30XA Fall on same level, unspecified, initial encounter; Y92.9 Unspecified place or not applicable; Z96.652 Presence of left artificial knee joint
CPT/HCPCS: 29125; 73110-RT; 73130-RT; 99283-25